=== PATIENT | male | born 1975 | race Caucasian/White ===

== ENCOUNTER 2020-01-01 08:06 | Day surgery (SDC) | payer OTHER ==
[2019-12-30 11:27] VITALS: BMI 27.4
[2020-01-01] MEDS ORDERED: PROPOFOL 20 ML ONE ×2 (08:48)
[2020-01-01 09:22] VITALS: TEMP 97.7
[2020-01-01 09:33] VITALS: BP 106/78; PULSE 78
== END 2020-01-01 09:30 | disposition home or self-care (01) ==
LOC: FASU-ENDO 08:06
PROVIDERS: ATTEND Internal Medicine Gastroenterology
PROC: 0DJD8ZZ Inspection of Lower Intestinal Tract, Via Natural or Artificial Opening Endoscopic (ICD-10-PCS; principal; 2020-01-01 08:52)
DX: K62.5 Hemorrhage of anus and rectum (principal); K64.8 Other hemorrhoids